=== PATIENT | female | born 1975 | race Caucasian/White ===

== ENCOUNTER 2019-05-15 16:43 | Emergency (ER) | payer OTHER ==
[~2019-05-15] VITALS: Ht 154.9 cm; Wt 82.5 kg
[~2019-05-15 16:43] MED LIST: NAPR-985 PO
[2019-05-15 17:02] VITALS: Ht 154.9 cm; Wt 82.5 kg
[2019-05-15] MEDS ORDERED: IBUPROFEN 600 MG TAB PO ONE (17:30)
[2019-05-15 19:01] VITALS: BP 118/76; PULSE 62; RESP 18
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
== END 2019-05-15 19:01 | disposition home or self-care (01) ==
LOC: FTE 16:43
DX: S40.021A Contusion of right upper arm, initial encounter (principal); V49.50XA Passenger injured in collision with unspecified motor vehicles in traffic accident, initial encounter
CPT/HCPCS: 73090; Z7502; Z7610